=== PATIENT | male | born 1950 | race Asian ===

== ENCOUNTER 2017-12-14 15:27 | Inpatient (IN) | payer BC, MEDICARE ==
[~2017-12-14] VITALS: Ht 170.2 cm; Wt 112.5 kg
[2017-12-14 21:06] LABS: HEMATOCRIT. 46.4 % (42.0-52.0); HEMOGLOBIN. 14.6 g/dL (14.0-18.0); MEAN CORPUSCULAR HEMOGLOBIN 21.9 pg (28.0-32.0); MEAN CORPUSCULAR VOLUME 69.9 fL (80.0-94.0); MEAN PLATELET VOLUME 7.7 fl (7.4-10.4); PLATELET 179 x1000/uL (130-400); RED BLOOD CELL COUNT 6.65 mill/uL (4.7-6.1); RED CELL DISTRIBUTION WIDTH 15.3 % (11.6-14.6)
[2017-12-14 21:11] LABS: INR 1.1; PROTHROMBIN TIME 11.7 sec (9.4-11.6)
[2017-12-14 21:25] LABS: CHLORIDE 106 mEq/L (98-107)
[2017-12-14] MEDS ORDERED: ASPIRIN 81MG TABLET PO ONE ×2 (21:30→21:45)
[2017-12-14] MEDS ORDERED: CLOPIDOGREL 75MG TABLET PO ONE (21:45)
[2017-12-14] MEDS ORDERED: ENOXAPARIN 80MG/0.8ML SYR SUBCUT ONE (21:45)
[2017-12-14 21:53] LABS: PLATELET ESTIMATE NORMAL
[2017-12-14] MEDS ORDERED: ZOLPIDEM TARTRATE 5MG TABLET PO PRN (23:00)
[2017-12-14] MEDS ORDERED: NA PHOS,M-B/NA PHOS,DI-BA ENEMA 118ML PR PRN (23:00)
[2017-12-14] MEDS ORDERED: GUAIFENESIN 200MG/10ML SUGAR FREE UDC PO PRN (23:00)
[2017-12-14] MEDS ORDERED: ONDANSETRON HCL 4MG/2ML INJ IV PRN (23:00)
[2017-12-14] MEDS ORDERED: DIPHENHYDRAMINE 50MG/ML VIAL IV PRN (23:00)
[2017-12-14] MEDS ORDERED: NITROGLYCERIN 0.4MG TABLET SL SL PRN (23:00)
[2017-12-14] MEDS ORDERED: TRAMADOL 50MG TABLET PO PRN (23:00)
[2017-12-14] MEDS ORDERED: MORPHINE SULFATE 2 MG/ML CPJ (NOT FOR IM USE) IV PRN (23:00)
[2017-12-14] MEDS ORDERED: MAGNESIUM/ALUMINUM HYDROXIDE/SIMETHICONE 30ML UDC PO PRN (23:00)
[2017-12-14] MEDS ORDERED: CLONIDINE 0.1MG TABLET PO PRN (23:00)
[2017-12-14] MEDS ORDERED: IPRATROPIUM/ALBUTEROL 0.5-3(2.5)MG/3ML NEB INH PRN (23:00)
[2017-12-15] VITALS (14 sets, daily range): BP systolic 97–170; BP diastolic 54–75
[2017-12-15 00:21] LABS: CLARITY URINE TURBID (CLEAR); COLOR URINE DARK YELLOW (YELLOW); KETONES URINE TRACE (NEGATIVE); LEUKOCYTE ESTERASE URINE NEGATIVE (NEGATIVE); NITRITE URINE NEGATIVE (NEGATIVE); OCCULT BLOOD URINE 3+ (NEGATIVE); PROTEIN URINE 3+ (NEGATIVE)
[2017-12-15 00:49] LABS: *AMPHETAMINES SCREEN URINE NEGATIVE (NEGATIVE); *BARBITURATES SCREEN URINE NEGATIVE (NEGATIVE); *BENZODIAZEPINES SCREEN URINE NEGATIVE (NEGATIVE); *COCAINE SCREEN URINE NEGATIVE (NEGATIVE); CANNABINOID URINE SCREEN NEGATIVE (NEGATIVE); METHADONE URINE SCREEN NEGATIVE (NEGATIVE); OPIATES URINE SCREEN NEGATIVE (NEGATIVE); PHENCYCLIDINE URINE SCREEN NEGATIVE (NEGATIVE)
[2017-12-15] MEDS: ACETAMINOPHEN 325MG TABLET PO PRN ×2 (07:58→16:49)
[2017-12-15] MEDS: ASPIRIN 325MG EC TABLET PO SCH (07:58)
[2017-12-15] MEDS: FAMOTIDINE 20MG/2ML VIAL IV SCH ×2 (07:59→21:28)
[2017-12-15] MEDS: METOPROLOL TARTRATE 25MG TABLET PO SCH ×2 (07:59→21:00)
[2017-12-15 08:19] LABS: HEMATOCRIT. 43.9 % (42.0-52.0); HEMOGLOBIN. 13.9 g/dL (14.0-18.0); MEAN CORPUSCULAR HEMOGLOBIN 22.1 pg (28.0-32.0); MEAN CORPUSCULAR VOLUME 69.9 fL (80.0-94.0); MEAN PLATELET VOLUME 8.6 fl (7.4-10.4); PLATELET 161 x1000/uL (130-400); RED BLOOD CELL COUNT 6.27 mill/uL (4.7-6.1); RED CELL DISTRIBUTION WIDTH 14.9 % (11.6-14.6)
[2017-12-15 08:37] LABS: CHLORIDE 108 mEq/L (98-107)
[2017-12-15] MEDS ORDERED: CLOPIDOGREL 75MG TABLET PO SCH (09:00)
[2017-12-15 09:45] LABS: PLATELET ESTIMATE NORMAL
[2017-12-15] MEDS ORDERED: CLONIDINE 0.2MG TABLET PO PRN (09:45)
[2017-12-15 10:15] LABS: CLARITY URINE CLOUDY (CLEAR); COLOR URINE DARK YELLOW (YELLOW); KETONES URINE TRACE (NEGATIVE); LEUKOCYTE ESTERASE URINE TRACE (NEGATIVE); NITRITE URINE NEGATIVE (NEGATIVE); OCCULT BLOOD URINE 3+ (NEGATIVE); PROTEIN URINE 3+ (NEGATIVE); SPECIFIC GRAVITY URINE 1.024 (1.005-1.030)
[2017-12-15] MEDS ORDERED: ENOXAPARIN 100MG/ML SYR SUBCUT SCH (12:00)
[2017-12-15] MEDS: NITROGLYCERIN OINT 1GM/INCH UDPKT TD SCH ×2 (12:00→18:48)
[2017-12-15] MEDS ORDERED: LEVOFLOXACIN 750MG PREMIX 150 ML IV SCH (14:00)
[2017-12-15 14:28] LABS: CREATINE KINASE MB FRACTION 1.3 ng/mL (0.5-3.6)
[2017-12-15] MEDS ORDERED: SODIUM CHLORIDE 0.9% 1000ML BAG (SEPSIS BOLUS) IV NR (15:00)
[2017-12-15 15:42] LABS: BG BASE EXCESS -2.3 mmol/L (-2.0-2.0); BG CARBOXYHEMOGLOBIN 0.8 % (0.5-1.5); BG DEOXYHEMOGLOBIN 2.2 % (0.0-5.0); BG FRACTION INSPIRED OXYGEN 28; BG HCO3 ACT 19.8 mmol/L (22.0-26.0); BG METHEMOGLOBIN 0.4 % (0.0-1.5); BG OXYGEN SATURATION 97.8 % (92.0-98.5); BG OXYHEMOGLOBIN 96.6 % (94.0-97.0); BG PCO2 27.8 mmHg (35.0-45.0); BG PH 7.471 (7.350-7.450); BG PO2 90.5 mmHg (75.0-100.0); BG SAMPLE SITE RIGHT BRACHIAL; BG TOTAL HEMOGLOBIN 14.6 g/dL (12.0-18.0); BG VENT MODE NASAL CANNULA
[2017-12-15] MEDS ORDERED: IPRATROPIUM/ALBUTEROL 0.5-3(2.5)MG/3ML NEB HHN PRN (15:45)
[2017-12-15] MEDS: AZITHROMYCIN 500 MG TABLET PO SCH (16:49)
[2017-12-15] MEDS ORDERED: IOHEXOL-350 100 ML BOTTLE ONE (16:56)
[2017-12-15] MEDS ORDERED: CEFTRIAXONE 1 G PREMIX 50 ML IV SCH (17:00)
[2017-12-15] MEDS: IPRATROPIUM/ALBUTEROL 0.5-3(2.5)MG/3ML NEB HHN SCH (20:41)
[2017-12-15] MEDS: ENOXAPARIN 100MG/ML SYR SUBCUT SCH (21:29)
[2017-12-15] MEDS: DEXT 5%/0.45% NACL 1000ML 1,000 ML IV SCH (23:32)
[2017-12-16] VITALS (14 sets, daily range): BP systolic 108–142; BP diastolic 53–86
[2017-12-16] MEDS: ACETYLCYSTEINE 100MG/ML 10% VIAL 4ML INH SCH ×3 (01:05→13:29)
[2017-12-16] MEDS: IPRATROPIUM/ALBUTEROL 0.5-3(2.5)MG/3ML NEB HHN SCH ×3 (01:05→13:29)
[2017-12-16] MEDS: NITROGLYCERIN OINT 1GM/INCH UDPKT TD SCH ×5 (01:14→23:15)
[2017-12-16] MEDS: DOCUSATE SODIUM 100MG CAPSULE PO PRN (06:46)
[2017-12-16 07:45] LABS: CHLORIDE 110 mEq/L (98-107)
[2017-12-16] MEDS: FAMOTIDINE 20MG/2ML VIAL IV SCH ×2 (08:06→20:31)
[2017-12-16] MEDS: AZITHROMYCIN 500 MG TABLET PO SCH (08:06)
[2017-12-16] MEDS: ASPIRIN 325MG EC TABLET PO SCH (08:06)
[2017-12-16] MEDS: ENOXAPARIN 100MG/ML SYR SUBCUT SCH ×2 (08:07→20:30)
[2017-12-16] MEDS: METOPROLOL TARTRATE 25MG TABLET PO SCH ×2 (08:11→20:31)
[2017-12-16] MEDS: DEXT 5%/0.45% NACL 1000ML 1,000 ML IV SCH ×3 (10:25→23:19)
[2017-12-16] MEDS ORDERED: POTASSIUM CHLORIDE 20MEQ TABLET SR PO NR (10:30)
[2017-12-16] MEDS: PIPERACILLIN/TAZ 3.375G PREMIX 50 ML IV SCH ×2 (12:59→20:30)
[2017-12-16] MEDS ORDERED: VANCOMYCIN 2,000 MG in DEXT 5% WATER 500 ML IV NR (13:30)
[2017-12-16] MEDS ORDERED: REGADENOSON 0.4 MG/5 ML IV SCH (13:30)
[2017-12-16] MEDS ORDERED: VANCOMYCIN 2,000 MG in SODIUM CHLORIDE 0.9% 500 ML IV NR (14:00)
[2017-12-16] MEDS: ACETAMINOPHEN 325MG TABLET PO PRN (16:52)
[2017-12-16] MEDS: MORPHINE SULFATE 2 MG/ML CPJ (NOT FOR IM USE) IV PRN ×2 (17:29→23:52)
[2017-12-17] VITALS (11 sets, daily range): BP systolic 101–160; BP diastolic 47–95
[2017-12-17] MEDS: IPRATROPIUM/ALBUTEROL 0.5-3(2.5)MG/3ML NEB HHN SCH ×4 (01:30→20:06)
[2017-12-17] MEDS: ACETYLCYSTEINE 100MG/ML 10% VIAL 4ML INH SCH (01:30)
[2017-12-17] MEDS: LORAZEPAM 0.5MG TABLET PO PRN ×2 (01:50→08:02)
[2017-12-17] MEDS: PIPERACILLIN/TAZ 3.375G PREMIX 50 ML IV SCH ×2 (05:21→12:24)
[2017-12-17] MEDS: NITROGLYCERIN OINT 1GM/INCH UDPKT TD SCH ×4 (05:23→23:58)
[2017-12-17] MEDS: MORPHINE SULFATE 2 MG/ML CPJ (NOT FOR IM USE) IV PRN ×3 (05:33→18:46)
[2017-12-17] MEDS ORDERED: VANCOMYCIN 1500MG in DEXTROSE 5% WATER 250ML IV SCH (08:00)
[2017-12-17] MEDS: METOPROLOL TARTRATE 25MG TABLET PO SCH ×2 (08:02→21:32)
[2017-12-17] MEDS: ENOXAPARIN 100MG/ML SYR SUBCUT SCH ×2 (08:02→21:31)
[2017-12-17] MEDS: DOCUSATE SODIUM 100MG CAPSULE PO PRN (08:02)
[2017-12-17] MEDS: FAMOTIDINE 20MG/2ML VIAL IV SCH ×2 (08:02→21:32)
[2017-12-17] MEDS: ASPIRIN 325MG EC TABLET PO SCH (08:03)
[2017-12-17] MEDS: DEXT 5%/0.45% NACL 1000ML 1,000 ML IV SCH ×2 (09:01→21:32)
[2017-12-17] MEDS ORDERED: HALOPERIDOL LACTATE 5MG/ML VIAL IM PRN ×2 (10:15→14:45)
[2017-12-17 12:32] LABS: HEMATOCRIT 39.5 % (42.0-52.0); HEMOGLOBIN 12.6 g/dL (14.0-18.0); MEAN CORPUSCULAR HEMOGLOBIN 22.1 pg (28.0-32.0); MEAN CORPUSCULAR VOLUME 69.3 fL (80.0-94.0); PLATELET 142 x1000/uL (130-400); RED BLOOD CELL COUNT 5.71 mill/uL (4.7-6.1); RED CELL DISTRIBUTION WIDTH 14.9 % (11.6-14.6)
[2017-12-17 13:39] LABS: BG BASE EXCESS -4.2 mmol/L (-2.0-2.0); BG CARBOXYHEMOGLOBIN 0.8 % (0.5-1.5); BG DEOXYHEMOGLOBIN 2.3 % (0.0-5.0); BG HCO3 ACT 18.6 mmol/L (22.0-26.0); BG METHEMOGLOBIN 0.4 % (0.0-1.5); BG OXYGEN SATURATION 97.7 % (92.0-98.5); BG OXYHEMOGLOBIN 96.5 % (94.0-97.0); BG PCO2 28.5 mmHg (35.0-45.0); BG PH 7.433 (7.350-7.450); BG PO2 88.5 mmHg (75.0-100.0); BG SAMPLE SITE RIGHT BRACHIAL; BG TOTAL HEMOGLOBIN 14.3 g/dL (12.0-18.0); BG VENT MODE NASAL CANNULA
[2017-12-17 13:46] LABS: CHLORIDE 113 mEq/L (98-107)
[2017-12-17] MEDS ORDERED: CEFTRIAXONE 2 G in DEXTROSE 5% WATER 50 ML IV SCH (15:00)
[2017-12-17] MEDS ORDERED: CEFTRIAXONE 2 G PREMIX 50 ML IV SCH (15:00)
[2017-12-17] MEDS: CEFTRIAXONE 2 G in DEXTROSE 5% WATER 50 ML IV SCH (16:32)
[2017-12-17] MEDS: RISPERIDONE 0.25MG TABLET PO SCH (17:07)
[2017-12-18] VITALS (13 sets, daily range): BP systolic 111–154; BP diastolic 58–85
[2017-12-18] MEDS: IPRATROPIUM/ALBUTEROL 0.5-3(2.5)MG/3ML NEB HHN SCH ×4 (02:18→21:40)
[2017-12-18] MEDS: NITROGLYCERIN OINT 1GM/INCH UDPKT TD SCH ×3 (05:59→17:41)
[2017-12-18] MEDS: DEXT 5%/0.45% NACL 1000ML 1,000 ML IV SCH ×2 (06:02→17:40)
[2017-12-18] MEDS: FAMOTIDINE 20MG/2ML VIAL IV SCH ×2 (10:43→22:09)
[2017-12-18] MEDS: ASPIRIN 325MG EC TABLET PO SCH (10:44)
[2017-12-18] MEDS: DOCUSATE SODIUM 100MG CAPSULE PO PRN (10:44)
[2017-12-18] MEDS: ENOXAPARIN 100MG/ML SYR SUBCUT SCH ×2 (10:44→22:09)
[2017-12-18] MEDS: RISPERIDONE 0.25MG TABLET PO SCH (10:44)
[2017-12-18] MEDS: METOPROLOL TARTRATE 25MG TABLET PO SCH ×2 (10:44→22:09)
[2017-12-18] MEDS: LOSARTAN POTASSIUM 25 MG TABLET PO SCH (10:44)
[2017-12-18] MEDS: RISPERIDONE 0.5MG TABLET PO SCH ×2 (16:52→17:40)
[2017-12-18] MEDS: CEFTRIAXONE 2 G in DEXTROSE 5% WATER 50 ML IV SCH (17:40)
[2017-12-18] MEDS ORDERED: ATORVASTATIN CALCIUM 20MG TABLET PO SCH (21:00)
[2017-12-18] MEDS: ATORVASTATIN CALCIUM 10MG TABLET PO SCH (22:09)
[2017-12-18] MEDS: ACETAMINOPHEN 325MG TABLET PO PRN (22:20)
[2017-12-19] VITALS (12 sets, daily range): BP systolic 119–171; BP diastolic 60–89
[2017-12-19] MEDS: NITROGLYCERIN OINT 1GM/INCH UDPKT TD SCH ×4 (00:40→18:20)
[2017-12-19] MEDS: DEXT 5%/0.45% NACL 1000ML 1,000 ML IV SCH ×2 (03:25→12:34)
[2017-12-19] MEDS: IPRATROPIUM/ALBUTEROL 0.5-3(2.5)MG/3ML NEB HHN SCH ×4 (03:58→20:57)
[2017-12-19 04:13] LABS: MYCOPLASMA PNEUMONIAE IGG 888 U/mL (0-99); MYCOPLASMA PNEUMONIAE IGM < 770 U/mL (0-769)
[2017-12-19 07:12] LABS: BASOPHILS % 0.2 % (0.0-2.0); EOSINOPHILS % 1.1 % (0.0-5.0); HEMATOCRIT. 38.4 % (42.0-52.0); LYMPHOCYTES % 9.8 % (20.0-50.0); MEAN CORPUSCULAR HEMOGLOBIN 21.7 pg (28.0-32.0); MEAN CORPUSCULAR VOLUME 69.6 fL (80.0-94.0); MEAN PLATELET VOLUME 8.7 fl (7.4-10.4); MONOCYTES % 11.5 % (2.0-8.0); NEUTROPHILS % 77.4 % (40.0-76.0); PLATELET 186 x1000/uL (130-400); RED BLOOD CELL COUNT 5.51 mill/uL (4.7-6.1); RED CELL DISTRIBUTION WIDTH 14.9 % (11.6-14.6)
[2017-12-19 07:47] LABS: CHLORIDE 115 mEq/L (98-107)
[2017-12-19] MEDS: ENOXAPARIN 100MG/ML SYR SUBCUT SCH ×2 (09:11→22:27)
[2017-12-19] MEDS: FAMOTIDINE 20MG/2ML VIAL IV SCH ×2 (09:11→22:28)
[2017-12-19] MEDS: RISPERIDONE 0.5MG TABLET PO SCH ×2 (09:12→18:18)
[2017-12-19] MEDS: ASPIRIN 325MG EC TABLET PO SCH (09:12)
[2017-12-19] MEDS: LOSARTAN POTASSIUM 25 MG TABLET PO SCH (09:12)
[2017-12-19] MEDS: METOPROLOL TARTRATE 25MG TABLET PO SCH ×2 (09:13→22:28)
[2017-12-19] MEDS: LACTULOSE 20G/30ML UDC PO SCH ×2 (13:57→22:28)
[2017-12-19] MEDS: CEFTRIAXONE 2 G in DEXTROSE 5% WATER 50 ML IV SCH (18:18)
[2017-12-19] MEDS: BUDESONIDE 0.5MG/2ML NEB HHN SCH (20:57)
[2017-12-19] MEDS: ATORVASTATIN CALCIUM 10MG TABLET PO SCH (22:28)
[2017-12-20] VITALS (15 sets, daily range): BP systolic 142–178; BP diastolic 70–106
[2017-12-20] MEDS: IPRATROPIUM/ALBUTEROL 0.5-3(2.5)MG/3ML NEB HHN SCH ×4 (01:14→20:37)
[2017-12-20] MEDS: NITROGLYCERIN OINT 1GM/INCH UDPKT TD SCH ×4 (01:19→18:10)
[2017-12-20] MEDS: LACTULOSE 20G/30ML UDC PO SCH ×3 (06:24→22:09)
[2017-12-20 07:02] LABS: HEMATOCRIT. 38.5 % (42.0-52.0); HEMOGLOBIN. 12.2 g/dL (14.0-18.0); MEAN CORPUSCULAR HEMOGLOBIN 21.9 pg (28.0-32.0); MEAN CORPUSCULAR VOLUME 69.3 fL (80.0-94.0); MEAN PLATELET VOLUME 8.5 fl (7.4-10.4); PLATELET 330 x1000/uL (130-400); RED BLOOD CELL COUNT 5.56 mill/uL (4.7-6.1)
[2017-12-20 08:43] LABS: CHLORIDE 117 mEq/L (98-107)
[2017-12-20] MEDS: LOSARTAN POTASSIUM 25 MG TABLET PO SCH ×2 (09:42→22:08)
[2017-12-20] MEDS: ASPIRIN 325MG EC TABLET PO SCH (09:44)
[2017-12-20] MEDS: FAMOTIDINE 20MG/2ML VIAL IV SCH ×2 (09:44→22:07)
[2017-12-20] MEDS: RISPERIDONE 0.5MG TABLET PO SCH ×2 (09:44→18:09)
[2017-12-20] MEDS: METOPROLOL TARTRATE 25MG TABLET PO SCH ×2 (09:44→22:08)
[2017-12-20] MEDS: ENOXAPARIN 100MG/ML SYR SUBCUT SCH ×2 (09:44→22:09)
[2017-12-20 10:43] LABS: PLATELET ESTIMATE NORMAL
[2017-12-20] MEDS: BUDESONIDE 0.5MG/2ML NEB HHN SCH ×2 (14:16→20:36)
[2017-12-20 14:27] LABS: BG BASE EXCESS -4.2 mmol/L (-2.0-2.0); BG CARBOXYHEMOGLOBIN 1.3 % (0.5-1.5); BG DEOXYHEMOGLOBIN 4.8 % (0.0-5.0); BG FRACTION INSPIRED OXYGEN 21; BG METHEMOGLOBIN 0.2 % (0.0-1.5); BG OXYGEN SATURATION 95.1 % (92.0-98.5); BG OXYHEMOGLOBIN 93.7 % (94.0-97.0); BG PCO2 29.9 mmHg (35.0-45.0); BG PH 7.421 (7.350-7.450); BG PO2 74.1 mmHg (75.0-100.0); BG SAMPLE SITE LEFT RADIAL; BG TOTAL HEMOGLOBIN 13.5 g/dL (12.0-18.0); BG VENT MODE ROOM AIR
[2017-12-20] MEDS ORDERED: LIDOCAINE HCL 1% 20ML VIAL (Pyxis) INJ ONE (14:35)
[2017-12-20] MEDS: AMMONIUM LACTATE 12% LOTION 240ML TOP SCH (18:10)
[2017-12-20] MEDS: ATORVASTATIN CALCIUM 10MG TABLET PO SCH (22:07)
[2017-12-20] MEDS: CEFTRIAXONE 2 G in DEXTROSE 5% WATER 50 ML IV SCH (22:07)
[2017-12-21] VITALS (14 sets, daily range): BP systolic 129–180; BP diastolic 63–90
[2017-12-21] MEDS: NITROGLYCERIN OINT 1GM/INCH UDPKT TD SCH ×4 (00:53→17:14)
[2017-12-21] MEDS: IPRATROPIUM/ALBUTEROL 0.5-3(2.5)MG/3ML NEB HHN SCH ×4 (02:10→20:39)
[2017-12-21] MEDS: CLONIDINE 0.1MG TABLET PO PRN (02:27)
[2017-12-21] MEDS: LACTULOSE 20G/30ML UDC PO SCH ×3 (06:01→22:13)
[2017-12-21 07:22] LABS: HEMATOCRIT. 37.8 % (42.0-52.0); MEAN CORPUSCULAR HEMOGLOBIN 22.2 pg (28.0-32.0); MEAN CORPUSCULAR VOLUME 69.6 fL (80.0-94.0); MEAN PLATELET VOLUME 8.1 fl (7.4-10.4); PLATELET 417 x1000/uL (130-400); RED BLOOD CELL COUNT 5.42 mill/uL (4.7-6.1); RED CELL DISTRIBUTION WIDTH 14.7 % (11.6-14.6)
[2017-12-21 07:34] LABS: CHLORIDE 118 mEq/L (98-107)
[2017-12-21] MEDS: BUDESONIDE 0.5MG/2ML NEB HHN SCH ×2 (08:05→20:39)
[2017-12-21] MEDS: FAMOTIDINE 20MG/2ML VIAL IV SCH ×2 (08:25→21:17)
[2017-12-21] MEDS: ASPIRIN 325MG EC TABLET PO SCH (08:25)
[2017-12-21] MEDS: RISPERIDONE 0.5MG TABLET PO SCH ×2 (08:25→17:14)
[2017-12-21] MEDS: LOSARTAN POTASSIUM 25 MG TABLET PO SCH ×2 (08:27→21:17)
[2017-12-21] MEDS: ENOXAPARIN 100MG/ML SYR SUBCUT SCH ×2 (08:27→21:18)
[2017-12-21] MEDS: METOPROLOL TARTRATE 25MG TABLET PO SCH ×2 (08:27→21:17)
[2017-12-21] MEDS: AMMONIUM LACTATE 12% LOTION 240ML TOP SCH ×2 (09:13→17:15)
[2017-12-21] MEDS ORDERED: POTASSIUM CHLORIDE 20MEQ TABLET SR PO NR (10:30)
[2017-12-21 14:34] LABS: PLATELET ESTIMATE SLIGHTLY INCREASED
[2017-12-21] MEDS: CEFTRIAXONE 2 G in DEXTROSE 5% WATER 50 ML IV SCH (17:14)
[2017-12-21] MEDS: ATORVASTATIN CALCIUM 10MG TABLET PO SCH (21:17)
[2017-12-22] VITALS: BP 138/68
[2017-12-22] MEDS: IPRATROPIUM/ALBUTEROL 0.5-3(2.5)MG/3ML NEB HHN SCH ×4 (01:15→21:33)
[2017-12-22] MEDS: NITROGLYCERIN OINT 1GM/INCH UDPKT TD SCH ×4 (01:16→18:22)
[2017-12-22 04:00] VITALS: BP 146/62
[2017-12-22] MEDS: LACTULOSE 20G/30ML UDC PO SCH ×3 (07:12→22:47)
[2017-12-22 08:00] VITALS: BP 171/80
[2017-12-22] MEDS: LOSARTAN POTASSIUM 25 MG TABLET PO SCH ×2 (08:58→22:48)
[2017-12-22] MEDS: ASPIRIN 325MG EC TABLET PO SCH (08:58)
[2017-12-22] MEDS: FAMOTIDINE 20MG/2ML VIAL IV SCH ×2 (08:58→22:47)
[2017-12-22] MEDS: RISPERIDONE 0.5MG TABLET PO SCH ×2 (08:59→17:11)
[2017-12-22] MEDS: METOPROLOL TARTRATE 25MG TABLET PO SCH ×2 (08:59→22:48)
[2017-12-22] MEDS: DOCUSATE SODIUM 100MG CAPSULE PO PRN (08:59)
[2017-12-22] MEDS: ENOXAPARIN 100MG/ML SYR SUBCUT SCH ×2 (09:00→22:47)
[2017-12-22] MEDS: AMMONIUM LACTATE 12% LOTION 240ML TOP SCH ×2 (09:00→17:00)
[2017-12-22] MEDS: BUDESONIDE 0.5MG/2ML NEB HHN SCH ×2 (09:07→21:33)
[2017-12-22] MEDS: CLONIDINE 0.1MG TABLET PO PRN ×2 (11:53→17:11)
[2017-12-22] MEDS: ACETAMINOPHEN 325MG TABLET PO PRN (11:57)
[2017-12-22 12:00] VITALS: BP 181/82
[2017-12-22] MEDS ORDERED: POTASSIUM CHLORIDE 20MEQ TABLET SR PO NR (12:40)
[2017-12-22] MEDS: AMLODIPINE 2.5MG TABLET PO SCH ×2 (13:27→22:48)
[2017-12-22 16:00] VITALS: BP 176/84
[2017-12-22] MEDS: CEFTRIAXONE 2 G in DEXTROSE 5% WATER 50 ML IV SCH (17:10)
[2017-12-22 20:00] VITALS: BP 133/79
[2017-12-22] MEDS: ATORVASTATIN CALCIUM 10MG TABLET PO SCH (22:48)
[2017-12-23] VITALS (7 sets, daily range): BP systolic 130–163; BP diastolic 70–85
[2017-12-23] MEDS: IPRATROPIUM/ALBUTEROL 0.5-3(2.5)MG/3ML NEB HHN SCH ×4 (00:55→21:53)
[2017-12-23 06:28] LABS: HEMATOCRIT. 37.6 % (42.0-52.0); HEMOGLOBIN. 11.9 g/dL (14.0-18.0); MEAN CORPUSCULAR VOLUME 69.8 fL (80.0-94.0); MEAN PLATELET VOLUME 7.6 fl (7.4-10.4); PLATELET 506 x1000/uL (130-400); RED BLOOD CELL COUNT 5.38 mill/uL (4.7-6.1); RED CELL DISTRIBUTION WIDTH 14.9 % (11.6-14.6)
[2017-12-23] MEDS: LACTULOSE 20G/30ML UDC PO SCH ×3 (06:35→22:45)
[2017-12-23] MEDS: NITROGLYCERIN OINT 1GM/INCH UDPKT TD SCH ×4 (06:36→17:46)
[2017-12-23 07:09] LABS: CHLORIDE 119 mEq/L (98-107)
[2017-12-23] MEDS: BUDESONIDE 0.5MG/2ML NEB HHN SCH ×2 (08:31→21:53)
[2017-12-23] MEDS: AMMONIUM LACTATE 12% LOTION 240ML TOP SCH ×2 (09:26→17:46)
[2017-12-23] MEDS: ENOXAPARIN 100MG/ML SYR SUBCUT SCH ×2 (09:26→23:04)
[2017-12-23] MEDS: LOSARTAN POTASSIUM 25 MG TABLET PO SCH ×2 (09:27→22:46)
[2017-12-23] MEDS: RISPERIDONE 0.5MG TABLET PO SCH ×2 (09:27→17:46)
[2017-12-23] MEDS: FAMOTIDINE 20MG/2ML VIAL IV SCH ×2 (09:27→22:46)
[2017-12-23] MEDS: METOPROLOL TARTRATE 25MG TABLET PO SCH ×2 (09:27→22:47)
[2017-12-23] MEDS: ASPIRIN 325MG EC TABLET PO SCH (09:27)
[2017-12-23] MEDS: AMLODIPINE 2.5MG TABLET PO SCH ×2 (09:28→22:46)
[2017-12-23 12:41] LABS: PLATELET ESTIMATE INCREASED
[2017-12-23] MEDS: CEFTRIAXONE 2 G in DEXTROSE 5% WATER 50 ML IV SCH (17:46)
[2017-12-23] MEDS: ATORVASTATIN CALCIUM 10MG TABLET PO SCH (22:46)
[2017-12-24] VITALS: BP 158/53
[2017-12-24] MEDS: NITROGLYCERIN OINT 1GM/INCH UDPKT TD SCH ×5 (01:31→23:27)
[2017-12-24] MEDS: IPRATROPIUM/ALBUTEROL 0.5-3(2.5)MG/3ML NEB HHN SCH ×4 (01:55→20:06)
[2017-12-24 04:00] VITALS: BP 149/69
[2017-12-24] MEDS: LACTULOSE 20G/30ML UDC PO SCH ×3 (06:53→23:28)
[2017-12-24] MEDS: BUDESONIDE 0.5MG/2ML NEB HHN SCH ×2 (07:52→20:06)
[2017-12-24 08:00] VITALS: BP 157/81
[2017-12-24] MEDS: FAMOTIDINE 20MG/2ML VIAL IV SCH ×2 (09:47→21:30)
[2017-12-24] MEDS: ASPIRIN 325MG EC TABLET PO SCH (09:47)
[2017-12-24] MEDS: ENOXAPARIN 100MG/ML SYR SUBCUT SCH ×2 (09:47→21:33)
[2017-12-24] MEDS: AMLODIPINE 2.5MG TABLET PO SCH (09:48)
[2017-12-24] MEDS: RISPERIDONE 0.5MG TABLET PO SCH ×2 (09:48→19:00)
[2017-12-24] MEDS: AMMONIUM LACTATE 12% LOTION 240ML TOP SCH ×2 (09:49→19:00)
[2017-12-24] MEDS: LOSARTAN POTASSIUM 25 MG TABLET PO SCH (09:49)
[2017-12-24] MEDS: METOPROLOL TARTRATE 25MG TABLET PO SCH ×2 (09:49→21:32)
[2017-12-24 12:00] VITALS: BP 148/78
[2017-12-24 16:00] VITALS: BP 143/66
[2017-12-24] MEDS: CEFTRIAXONE 2 G in DEXTROSE 5% WATER 50 ML IV SCH (19:00)
[2017-12-24 20:00] VITALS: BP 149/68
[2017-12-24] MEDS: ATORVASTATIN CALCIUM 10MG TABLET PO SCH (21:30)
[2017-12-24] MEDS: ACETAMINOPHEN 325MG TABLET PO PRN (21:30)
[2017-12-24] MEDS: LOSARTAN POTASSIUM 50 MG TABLET PO SCH (21:31)
[2017-12-24] MEDS: AMLODIPINE 5MG TABLET PO SCH (21:33)
[2017-12-25] VITALS: BP 144/59
[2017-12-25] MEDS: IPRATROPIUM/ALBUTEROL 0.5-3(2.5)MG/3ML NEB HHN SCH ×2 (01:36→07:44)
[2017-12-25 04:00] VITALS: BP 167/77
[2017-12-25 06:52] LABS: HEMATOCRIT. 37.6 % (42.0-52.0); HEMOGLOBIN. 12.1 g/dL (14.0-18.0); MEAN CORPUSCULAR HEMOGLOBIN 22.5 pg (28.0-32.0); MEAN CORPUSCULAR VOLUME 70.1 fL (80.0-94.0); MEAN PLATELET VOLUME 7.5 fl (7.4-10.4); PLATELET 505 x1000/uL (130-400); RED BLOOD CELL COUNT 5.36 mill/uL (4.7-6.1); RED CELL DISTRIBUTION WIDTH 14.9 % (11.6-14.6)
[2017-12-25] MEDS: LACTULOSE 20G/30ML UDC PO SCH ×4 (07:02→22:00)
[2017-12-25] MEDS: NITROGLYCERIN OINT 1GM/INCH UDPKT TD SCH ×3 (07:03→17:07)
[2017-12-25 07:30] LABS: CHLORIDE 116 mEq/L (98-107)
[2017-12-25] MEDS: BUDESONIDE 0.5MG/2ML NEB HHN SCH (07:44)
[2017-12-25 08:00] VITALS: BP 164/77
[2017-12-25] MEDS: ENOXAPARIN 100MG/ML SYR SUBCUT SCH ×2 (08:27→22:30)
[2017-12-25] MEDS: METOPROLOL TARTRATE 25MG TABLET PO SCH ×2 (08:27→22:29)
[2017-12-25] MEDS: LOSARTAN POTASSIUM 50 MG TABLET PO SCH ×2 (08:27→22:29)
[2017-12-25] MEDS: RISPERIDONE 0.5MG TABLET PO SCH ×2 (08:28→17:07)
[2017-12-25] MEDS: ASPIRIN 325MG EC TABLET PO SCH (08:28)
[2017-12-25] MEDS: FAMOTIDINE 20MG/2ML VIAL IV SCH ×2 (08:28→22:40)
[2017-12-25] MEDS: AMLODIPINE 5MG TABLET PO SCH ×2 (08:32→22:29)
[2017-12-25] MEDS: AMMONIUM LACTATE 12% LOTION 240ML TOP SCH ×2 (08:33→16:01)
[2017-12-25 12:00] VITALS: BP 147/66
[2017-12-25 13:34] LABS: NUCLEATED RED BLOOD CELLS 1 /100 WBC
[2017-12-25 13:35] LABS: PLATELET ESTIMATE INCREASED
[2017-12-25 16:00] VITALS: BP 156/74
[2017-12-25] MEDS: CEFTRIAXONE 2 G in DEXTROSE 5% WATER 50 ML IV SCH (16:10)
[2017-12-25] MEDS: TRAMADOL 50MG TABLET PO PRN (17:09)
[2017-12-25 20:00] VITALS: BP 149/71
[2017-12-25] MEDS: ATORVASTATIN CALCIUM 10MG TABLET PO SCH (22:29)
[2017-12-26] VITALS: BP 142/77
[2017-12-26] MEDS: NITROGLYCERIN OINT 1GM/INCH UDPKT TD SCH ×4 (01:58→19:09)
[2017-12-26 04:00] VITALS: BP 131/57
[2017-12-26] MEDS: LACTULOSE 20G/30ML UDC PO SCH ×3 (06:00→22:00)
[2017-12-26 08:00] VITALS: BP 162/69
[2017-12-26] MEDS: RISPERIDONE 0.5MG TABLET PO SCH ×2 (09:18→17:28)
[2017-12-26] MEDS: METOPROLOL TARTRATE 25MG TABLET PO SCH ×2 (09:19→23:53)
[2017-12-26] MEDS: ASPIRIN 325MG EC TABLET PO SCH (09:20)
[2017-12-26] MEDS: LOSARTAN POTASSIUM 50 MG TABLET PO SCH ×2 (09:20→23:52)
[2017-12-26] MEDS: AMLODIPINE 5MG TABLET PO SCH ×2 (09:20→23:52)
[2017-12-26] MEDS: AMMONIUM LACTATE 12% LOTION 240ML TOP SCH ×2 (09:23→17:28)
[2017-12-26] MEDS: ENOXAPARIN 100MG/ML SYR SUBCUT SCH ×2 (09:24→23:54)
[2017-12-26] MEDS: FAMOTIDINE 20MG/2ML VIAL IV SCH ×2 (09:35→23:53)
[2017-12-26 12:00] VITALS: BP_SYST 120; BP_SYST 127; BP_DIAS 66; BP_DIAS 78
[2017-12-26] MEDS: TRAMADOL 50MG TABLET PO PRN (12:44)
[2017-12-26 16:00] VITALS: BP 144/70
[2017-12-26] MEDS: CEFTRIAXONE 2 G in DEXTROSE 5% WATER 50 ML IV SCH (16:44)
[2017-12-26 20:00] VITALS: BP 139/64
[2017-12-26] MEDS: ATORVASTATIN CALCIUM 10MG TABLET PO SCH (23:53)
[2017-12-27] VITALS: BP 144/68
[2017-12-27] MEDS: TRAMADOL 50MG TABLET PO PRN ×2 (02:24→10:28)
[2017-12-27] MEDS: NITROGLYCERIN OINT 1GM/INCH UDPKT TD SCH ×2 (02:24→05:30)
[2017-12-27] MEDS: LACTULOSE 20G/30ML UDC PO SCH (05:31)
[2017-12-27 08:00] VITALS: BP 143/66
[2017-12-27] MEDS: ENOXAPARIN 100MG/ML SYR SUBCUT SCH (08:54)
[2017-12-27] MEDS: LOSARTAN POTASSIUM 50 MG TABLET PO SCH (08:55)
[2017-12-27] MEDS: AMLODIPINE 5MG TABLET PO SCH (08:56)
[2017-12-27] MEDS: ASPIRIN 325MG EC TABLET PO SCH (08:56)
[2017-12-27] MEDS: METOPROLOL TARTRATE 25MG TABLET PO SCH (08:56)
[2017-12-27] MEDS: RISPERIDONE 0.5MG TABLET PO SCH (08:56)
[2017-12-27] MEDS: FAMOTIDINE 20MG/2ML VIAL IV SCH (09:02)
[2017-12-27] MEDS: AMMONIUM LACTATE 12% LOTION 240ML TOP SCH (09:06)
[2017-12-27 09:53] VITALS: BP 143/66
[2017-12-27 10:28] VITALS: BP 143/66
== END 2017-12-27 10:50 | DRG 871 ==
LOC: ER 15:27 → 3WST 22:55 → ENRESERV 23:08 → SUPCPDRO 23:12 → 3WST 12-15 00:14 → 6EST 12-21 22:30
PROVIDERS: ADMIT Internal Medicine; ATTEND Internal Medicine
PROC: 05H533Z Insertion of Infusion Device into Right Subclavian Vein, Percutaneous Approach (ICD-10-PCS; principal; 2017-12-20)
PROC: B546ZZA Ultrasonography of Right Subclavian Vein, Guidance (ICD-10-PCS; 2017-12-20)
DX: A40.8 Other streptococcal sepsis (principal); I21.4 Non-ST elevation (NSTEMI) myocardial infarction; J96.00 Acute respiratory failure, unspecified whether with hypoxia or hypercapnia; G93.41 Metabolic encephalopathy; N17.9 Acute kidney failure, unspecified; E44.0 Moderate protein-calorie malnutrition; E72.20 Disorder of urea cycle metabolism, unspecified; M62.82 Rhabdomyolysis; L03.115 Cellulitis of right lower limb; L03.116 Cellulitis of left lower limb; N39.0 Urinary tract infection, site not specified; B48.8 Other specified mycoses; E87.2 Acidosis; E66.01 Morbid (severe) obesity due to excess calories; I10 Essential (primary) hypertension; B35.1 Tinea unguium; D64.9 Anemia, unspecified; E87.6 Hypokalemia; J44.9 Chronic obstructive pulmonary disease, unspecified; J98.01 Acute bronchospasm; Z78.1 Physical restraint status; Z79.82 Long term (current) use of aspirin; Z71.3 Dietary counseling and surveillance; Z68.38 Body mass index [BMI] 38.0-38.9, adult
CPT/HCPCS: 36415; 36600; 71045; 71275; 73521; 73562; 74018; 74176; 76937; 80048; 80061; 80305; 81001; 82140; 82375; 82550; 82553; 82693; 82805; 82962; 83036; 83605; 83735; 83880; 84153; 84443; 84484; 85027; 85379; 86738; 87077; 87186; 93005; 93306; 94640; 94664; 96372; 97110; 97116; 97162; 97167; 97530; 99285; J0696; J1200; J1630; J1650; J1956; J2270; J2543; J3370; J3490; J7030; J7040; J7050; J7060; J7608; J7620; J7626; Q9967; A4315; G0103